=== PATIENT | female | born 1960 | race Caucasian/White ===

== ENCOUNTER 2016-08-12 15:52 | Emergency (ER) | payer OTHER ==
[2016-08-12] MEDS ORDERED: PREDNISONE 20 MG TABLET PO ONE (16:07)
[2016-08-12] MEDS ORDERED: ALBUTEROL SULFATE 0.083% NEB 2.5 MG/3 ML AMPUL NEB ONE (16:07)
--- NOTE | 2016-08-12 16:13 | ER Document Report ---
ED Respiratory Problem - General Chief Complaint: Breathing Difficulty Stated Complaint: DIFFICULTY BREATHING Time Seen by Provider: 08/12/16 16:02 Mode of Arrival: Ambulatory Information source: Patient TRAVEL OUTSIDE OF THE [place] IN LAST 30 DAYS: No - HPI Patient complains to provider of: Short of breath Onset: Yesterday Duration: Worse/persistent Quality of pain: No pain Context: Hx asthma Short of Breath: Mild Chest pain/discomfort: Tightness Cough: Nonproductive At home treatment: Bronchodilators Associated symptoms: Congestion, Cough, Short of breath Similar symptoms previously: Yes Recently seen / treated by doctor: No Notes: Patient is a 55-year-old female who presents to the emergency room complaining of shortness of breath that been present over the last 2 days, she is a history of asthma, she is visiting from [place] and the friend that she is visiting with his dog in the house and she is concerned maybe that is affecting her asthma, she has used her bronchodilators with minimal relief of symptoms, she denies any chest pain, no leg or calf pain or tenderness - Related Data Allergies/Adverse Reactions: latex Allergy (Verified 08/12/16 15:56) Penicillins Allergy (Verified 08/12/16 15:56) Past Medical History - General Information source: Patient - Social History Smoking Status: Never Smoker Chew tobacco use (# tins/day): No Frequency of alcohol use: None Drug Abuse: None Family History: Reviewed & Not Pertinent Patient has suicidal ideation: No Patient has homicidal ideation: No - Past Medical History Cardiac Medical History: Reports: Hx Hypertension Pulmonary Medical History: Reports: Hx Asthma Renal/ Medical History: Denies: Hx Peritoneal Dialysis - Immunizations Hx Diphtheria, Pertussis, Tetanus Vaccination: Yes Review of Systems - Review of Systems Constitutional: No symptoms reported EENT: No symptoms reported Cardiovascular: No symptoms reported Respiratory: See HPI Gastrointestinal: No symptoms reported Genitourinary: No symptoms reported Female Genitourinary: No symptoms reported Musculoskeletal: No symptoms reported Skin: No symptoms reported Hematologic/Lymphatic: No symptoms reported Neurological/Psychological: No symptoms reported -: Yes All other systems reviewed and negative Physical Exam - Vital signs Vitals: Temp Pulse Resp BP Pulse Ox 98.1 F 97 22 H 142/88 H 95 08/12/16 15:56 08/12/16 15:56 08/12/16 15:56 08/12/16 15:56 08/12/16 15:56 Interpretation: Normal - General General appearance: Appears well, Alert - HEENT Head: Normocephalic, Atraumatic Eyes: Normal Pupils: PERRL - Respiratory Respiratory status: No respiratory distress Chest status: Nontender Breath sounds: Nonproductive cough, Wheezing Chest palpation: Normal - Cardiovascular Rhythm: Regular Heart sounds: Normal auscultation Murmur: No - Abdominal Inspection: Normal Distension: No distension Bowel sounds: Normal Tenderness: Nontender Organomegaly: No organomegaly - Back Back: Normal, Nontender - Extremities General upper extremity: Normal inspection, Nontender, Normal color, Normal ROM , Normal temperature General lower extremity: Normal inspection, Nontender, Normal color, Normal ROM , Normal temperature, Normal weight bearing. No: Mainor's sign - Neurological Neuro grossly intact: Yes Cognition: Normal Orientation: AAOx4 [place] Coma Scale Eye Opening: Spontaneous Maurizio Coma Scale Verbal: Oriented Maurizio Coma Scale Motor: Obeys Commands [place] Coma Scale Total: 15 Speech: Normal Motor strength normal: LUE, RUE, LLE, RLE Sensory: Normal - Psychological Associated symptoms: Normal affect, Normal mood - Skin Skin Temperature: Warm Skin Moisture: Dry Skin Color: Normal Course - Re-evaluation Re-evalutation: 08/12/16 17:39 Reports feeling much better after breathing treatment, chest x-ray and EKG are unremarkable and discussed with patient, symptoms are consistent with asthma exacerbation, she will be discharged with a prescription for prednisone and advised to follow-up or return if symptoms worsen, patient acknowledges and agreement with this plan - Vital Signs Vital signs: Temp Pulse Resp BP Pulse Ox 98.1 F 97 22 H 142/88 H 95 08/12/16 15:56 08/12/16 15:56 08/12/16 15:56 08/12/16 15:56 08/12/16 15:56 - Diagnostic Test Radiology reviewed: Image reviewed, Reports reviewed - EKG Interpretation by Me EKG shows normal: Sinus rhythm Rate: Normal Rhythm: NSR Discharge - Discharge Clinical Impression: Acute asthma exacerbation Qualifiers: Asthma severity: mild persistent Qualified Code(s): J45.31 - Mild persistent asthma with (acute) exacerbation Condition: Stable Disposition: HOME, SELF-CARE Instructions: Asthma ([facility]) Additional Instructions: Follow up with your primary care provider in one to 2 days. Return to the emergency room immediately if symptoms worsen or any additional concerns. Prescriptions: Prednisone 40 mg PO DAILY #8 tablet
--- NOTE | 2016-08-12 16:35 | RADIOLOGY REPORT (SQ) ---
EXAM DESCRIPTION: CHEST PA/LAT COMPLETED DATE/TIME: 08/12/2016 4:25 pm REASON FOR STUDY: db COMPARISON: None. EXAM PARAMETERS: NUMBER OF VIEWS: two views TECHNIQUE: Digital Frontal and Lateral radiographic views of the chest acquired. RADIATION DOSE: NA LIMITATIONS: none FINDINGS: LUNGS AND PLEURA: No opacities, masses or pneumothorax. No pleural effusion. MEDIASTINUM AND HILAR STRUCTURES: No masses or contour abnormalities. HEART AND VASCULAR STRUCTURES: Heart normal size. No evidence for failure. BONES: No acute findings. HARDWARE: None in the chest. OTHER: No other significant finding. IMPRESSION: NO SIGNIFICANT RADIOGRAPHIC FINDING IN THE CHEST. TECHNICAL DOCUMENTATION: JOB ID: [id number] [employer]- All Rights Reserved
--- NOTE | 2016-08-12 16:54 | EKG REPORT ---
SEVERITY:- BORDERLINE ECG - SINUS RHYTHM PROBABLE LEFT ATRIAL ABNORMALITY : Confirmed by: Jose Fabian MD 12-Aug-2016 16:53:39
[2016-08-12 18:10] VITALS: BP 122/62
== END 2016-08-12 17:45 | disposition home or self-care (01) ==
LOC: ER 15:52
DX: J45.31 Mild persistent asthma with (acute) exacerbation (principal); I10 Essential (primary) hypertension; Z91.040 Latex allergy status; Z88.0 Allergy status to penicillin
CPT/HCPCS: 93005; 94640; 99285; 71020; 93010; J7512